=== PATIENT | male | born 1990 | race Hispanic/Latino ===

== ENCOUNTER 2021-11-16 14:48 | Emergency (ER) | payer SELFPAY ==
[~2021-11-16] VITALS: Ht 177.8 cm; Wt 81.6 kg
[2021-11-16] MEDS ORDERED: ACETAMINOPHEN 325 MG TAB PO NR (15:00)
[2021-11-16] MEDS ORDERED: IBUPROFEN 600 MG TAB ONE (15:10)
[2021-11-16] MEDS ORDERED: KETOROLAC TROMETHAMINE 60 MG/2 ML VIAL IM ONE (15:15)
[2021-11-16] MEDS ORDERED: IBUPROFEN600 MG PO (15:25)
[2021-11-16] MEDS ORDERED: CYCLOBENZAPRINE10 MG PO (15:25)
[2021-11-16] MEDS ORDERED: KETOROLAC TROMETHAMINE 60 MG/2 ML VIAL IM NR (15:30)
[2021-11-16] MEDS ORDERED: IBUPROFEN 600 MG TAB PO NR (15:30)
== END 2021-11-16 16:28 | disposition home or self-care (01) ==
LOC: ER 14:53
DX: M54.6 Pain in thoracic spine (principal); X50.0XXA Overexertion from strenuous movement or load, initial encounter; Z20.822 Contact with and (suspected) exposure to COVID-19
CPT/HCPCS: 71046; 99284; U0002